=== PATIENT | female | born 1985 | race Asian ===

== ENCOUNTER 2016-11-18 20:59 | Emergency (ER) | payer OTHER ==
[~2016-11-18] VITALS: Ht 157.5 cm; Wt 58.0 kg
--- NOTE | 2016-11-18 21:58 | PHYS DOC ---
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 The pain began as a dull ache in her toes and feet grading to her ankles and now her shins knees and hips. She describes the pain is moderate not really worse when she changes position or use her muscles or legs. She also describes some mild lower back pain and possibly wonders if she has a UTI. She denies any fevers, chills, rash, recent tick bites, insect envenomations, recent URI symptoms, history of sexually transmitted diseases or joint swelling with redness and travel. She denies any recent antibiotic use denies any trauma. She denies any prior history of the same. She denies any change in vision, diarrhea, nausea, or sick contacts with similar symptoms. My differential includes but not limited to viral polyarthritis, systemic medical diseases, rheumatism, hypermobility syndrome and fibromyalgia, reactive arthritis and irritable bowel disease, polymyalgia rheumatica, crystalline arthritis, gout, infectious arthritis, osteoarthritis, paraneoplastic disease, sarcoid arthropathy, fibroblastic rheumatism, sexually-transmitted diseases. Serum sickness, influenza. Review of Systems Review of Systems Constitutional: Denies fever or chills [] Eyes: Denies change in visual acuity, redness, or eye pain [] HENT: Denies nasal congestion or sore throat [] Respiratory: Denies cough or shortness of breath [] Cardiovascular: No additional information not addressed in HPI [] GI: Denies abdominal pain, nausea, vomiting, bloody stools or diarrhea [] : Denies dysuria or hematuria [] Musculoskeletal: sHe does complain of joint pain bilateral ankles knees hips and shins without changes in color with rash or swelling. Integument: Denies rash or skin lesions [] Neurologic: Denies headache, focal weakness or sensory changes [] Endocrine: Denies polyuria or polydipsia [] Allergies Allergies Allergies Coded Allergies Type Severity Reaction Last Updated Verified No Known Drug Allergies 02/18/15 No Physical Exam Physical Exam Vital Signs within normal limits nontoxic Constitutional: Well developed, well nourished, no acute distress, non-toxic appearance. [] HENT: Normocephalic, atraumatic, bilateral external ears normal, oropharynx moist, no oral exudates, nose normal. [] Eyes: PERRLA, EOMI, conjunctiva normal, no discharge. [] Neck: Normal range of motion, no tenderness, supple, no stridor. [] Cardiovascular:Heart rate regular rhythm, no murmur [] Lungs & Thorax: Bilateral breath sounds clear to auscultation [] Abdomen: Bowel sounds normal, soft, no tenderness, no masses, no pulsatile masses. [] Skin: Warm, dry, no erythema, no rash. [] Back: No tenderness, no CVA tenderness. [] Extremities: No tenderness, no cyanosis, no clubbing, ROM intact, no edema. [] Neurologic: Alert and oriented X 3, normal motor function, normal sensory function, no focal deficits noted. [] Psychologic: Affect normal, judgement normal, mood normal. [] Current Patient Data Vital Signs Vital Signs Date Time Temp Pulse Resp B/P (MAP) Pulse Ox O2 Delivery O2 Flow Rate FiO2 11/18/16 21:00 98.6 80 16 99 Room Air Lab Results Laboratory Tests Test 11/18/16 22:54 11/18/16 23:06 White Blood Count 8.2 x10^3/uL (4.0-11.0) Red Blood Count 4.39 x10^6/uL (3.50-5.40) Hemoglobin 13.2 g/dL (12.0-15.5) Hematocrit 39.3 % (36.0-47.0) Mean Corpuscular Volume 89 fL (79-100) Mean Corpuscular Hemoglobin 30 pg (25-35) Mean Corpuscular Hemoglobin Concent 34 g/dL (31-37) Red Cell Distribution Width 14.4 % (11.5-14.5) Platelet Count 249 x10^3/uL (140-400) Neutrophils (%) (Auto) 55 % (31-73) Lymphocytes (%) (Auto) 34 % (24-48) Monocytes (%) (Auto) 9 % (0-9) Eosinophils (%) (Auto) 1 % (0-3) Basophils (%) (Auto) 1 % (0-3) Neutrophils # (Auto) 4.6 x10^3uL (1.8-7.7) Lymphocytes # (Auto) 2.8 x10^3/uL (1.0-4.8) Monocytes # (Auto) 0.7 x10^3/uL (0.0-1.1) Eosinophils # (Auto) 0.1 x10^3/uL (0.0-0.7) Basophils # (Auto) 0.0 x10^3/uL (0.0-0.2) Erythrocyte Sedimentation Rate Pending Urine Test Negative (NEG) Sodium Level 141 mmol/L (136-145) Potassium Level 3.3 mmol/L (3.5-5.1) L Chloride Level 104 mmol/L (98-107) Carbon Dioxide Level 30 mmol/L (21-32) Anion Gap 7 (6-14) Blood Urea Nitrogen 11 mg/dL (7-20) Creatinine 0.7 mg/dL (0.6-1.0) Estimated GFR (Cockcroft-Gault) 97.6 BUN/Creatinine Ratio 16 (6-20) Glucose Level 108 mg/dL (70-99) H Calcium Level 9.4 mg/dL (8.5-10.1) Total Bilirubin 0.2 mg/dL (0.2-1.0) Aspartate Amino Transferase (AST) 15 U/L (15-37) Alanine Aminotransferase (ALT) 17 U/L (14-59) Alkaline Phosphatase 136 U/L (46-116) H C-Reactive Protein 1.1 mg/L (0-3.3) Total Protein 8.4 g/dL (6.4-8.2) H Albumin 4.0 g/dL (3.4-5.0) Albumin/Globulin Ratio 0.9 (1.0-1.7) L POC Urine HCG, Qualitative hcg negative (Negative) EKG EKG [] Radiology/Procedures Radiology/Procedures [] Course & Med Decision Making Course & Med Decision Making Pertinent Labs and Imaging studies reviewed. (See chart for details) reviewed nursing notes, vital signs, reviewed She with arthralgia of unclear etiology no history of tick borne illness, or known admission by local insects. Patient with no URI symptoms, no bladder symptoms no fevers, chills or other complaints of viral syndrome. She may be in fact suffering from a viral syndrome consideredMy differential includes but not limited to viral polyarthritis, systemic medical diseases, rheumatism, hypermobility syndrome and fibromyalgia, reactive arthritis and irritable bowel disease, polymyalgia rheumatica, crystalline arthritis, gout, infectious arthritis, osteoarthritis, paraneoplastic disease, sarcoid arthropathy, fibroblastic rheumatism, sexually-transmitted diseases. Serum sickness, influenza. As possible causes of her symptoms. She has Lyme titer still pending at this time. I have provided her supportive care follow-up with her regular doctor to review these laboratories and given her precautions. Impression: Arthralgia of unclear etiology Disposition PCP follow placed on NSAIDs. [] Dragon Disclaimer Dragon Disclaimer This chart was dictated in whole or in part using Voice Recognition software in a busy, high-work load, and often noisy Emergency Department environment. It may contain unintended and wholly unrecognized errors or omissions. Departure Departure: Impression: Primary Impression: Arthralgia of both ankles Additional Impressions: Arthralgia of both feet Arthralgia of both knees Disposition: HOME, SELF-CARE Condition: IMPROVED Referrals: QUEENIE MARTELL MD (PCP) Patient Instructions: Arthralgia Additional Instructions: Please return for any new or increasing pain and new joints, rash, fever greater than 102.2 spray treatment or if you have any questions or concerns. I would advise a follow-up your primary care doctor to review laboratory work. The Lyme titer if positive we will call you at home. Scripts Naproxen Sodium (NAPROXEN SODIUM) 275 Mg Tablet 275 MG PO BID for 7 Days, #14 TAB Prov: ANJELICA RHODES MD 11/19/16 Problem Qualifiers ANJELICA RHODES MD Nov 18, 2016 21:58
[2016-11-18] MEDS ORDERED: 0.9 % SODIUM CHLORIDE 10 ML DISP.SYRIN. IV PRN (22:00)
[2016-11-18] MEDS ORDERED: IV NORMAL SALINE 1,000ML 1,000 ML IV SCH (22:00)
[2016-11-18] MEDS ORDERED: KETOROLAC 30 MG/ML VIAL. IV ONE (23:15)
[2016-11-18 23:25] LABS: BASO % 1 % (0-3); EOS # 0.1 x10^3/uL (0.0-0.7); EOS % 1 % (0-3); HEMATOCRIT 39.3 % (36.0-47.0); HEMOGLOBIN 13.2 g/dL (12.0-15.5); LYMPH # 2.8 x10^3/uL (1.0-4.8); LYMPH % 34 % (24-48); MEAN CORPUSCULAR HEMOGLOBIN 30 pg (25-35); MEAN CORPUSCULAR HGB CONC 34 g/dL (31-37); MEAN CORPUSCULAR VOLUME 89 fL (79-100); MONO # 0.7 x10^3/uL (0.0-1.1); MONO % 9 % (0-9); NEUT # 4.6 x10^3uL (1.8-7.7); NEUT % 55 % (31-73); PLATELET COUNT 249 x10^3/uL (140-400); RED BLOOD COUNT 4.39 x10^6/uL (3.50-5.40); RED CELL DISTRIBUTION WIDTH 14.4 % (11.5-14.5); WHITE BLOOD COUNT 8.2 x10^3/uL (4.0-11.0)
[2016-11-18 23:30] LABS: ALBUMIN/GLOBULIN RATIO 0.9 (1.0-1.7); C REACTIVE PROTEIN 1.1 mg/L (0-3.3); CALCIUM 9.4 mg/dL (8.5-10.1); CREATININE 0.7 mg/dL (0.6-1.0); GFR 97.6; POTASSIUM 3.3 mmol/L (3.5-5.1); TOTAL BILIRUBIN 0.2 mg/dL (0.2-1.0); TOTAL PROTEIN 8.4 g/dL (6.4-8.2)
[2016-11-19] MEDS ORDERED: NAPR275T59 PO (00:03)
[2016-11-19 00:10] VITALS: BP 118/73
[2016-11-19 00:25] LABS: SEDIMENTATION RATE 29 (0-25)
[2016-11-19 00:30] LABS: BILIRUBIN,URINE NEG (NEG); CLARITY,URINE CLEAR; COLOR,URINE YELLOW; GLUCOSE,URINE NEG (NEG)
[2016-11-19 00:31] LABS: BACTERIA,URINE FEW /HPF (0-FEW); NITRITE,URINE POS (NEG); RBC,URINE OCC /HPF (0-2); UROBILINOGEN,URINE 0.2 mg/dL (0.2 mg/dL); WBC,URINE RARE /HPF (0-4)
[2016-11-19 00:32] LABS: SQUAMOUS EPITHELIAL CELL,UR FEW /LPF
== END 2016-11-19 00:15 | disposition home or self-care (01) ==
LOC: ER 20:59
DX: M25.572 Pain in left ankle and joints of left foot (principal); M25.571 Pain in right ankle and joints of right foot; M25.562 Pain in left knee; M25.561 Pain in right knee; M54.5 Low back pain
CPT/HCPCS: 36415; 80053; 81001; 81025; 85027; 85651; 86140; 86617; 86618; 87086; 87186; 96361; 96374; 99284; J1885; J7030

== ENCOUNTER 2016-12-18 13:38 | Emergency (ER) | payer OTHER ==
[~2016-12-18] VITALS: Ht 157.5 cm; Wt 56.7 kg
[~2016-12-18 13:38] MED LIST: NAPR275T59 PO
[2016-12-18 14:40] LABS: BASO % 0 % (0-3); EOS % 1 % (0-3); HEMATOCRIT 39.1 % (36.0-47.0); HEMOGLOBIN 13.2 g/dL (12.0-15.5); LYMPH # 1.8 x10^3/uL (1.0-4.8); LYMPH % 18 % (24-48); MEAN CORPUSCULAR HEMOGLOBIN 30 pg (25-35); MEAN CORPUSCULAR HGB CONC 34 g/dL (31-37); MEAN CORPUSCULAR VOLUME 89 fL (79-100); MONO # 0.7 x10^3/uL (0.0-1.1); MONO % 7 % (0-9); NEUT # 7.2 x10^3uL (1.8-7.7); NEUT % 74 % (31-73); PLATELET COUNT 267 x10^3/uL (140-400); RED BLOOD COUNT 4.41 x10^6/uL (3.50-5.40); RED CELL DISTRIBUTION WIDTH 14.2 % (11.5-14.5); WHITE BLOOD COUNT 9.8 x10^3/uL (4.0-11.0)
[2016-12-18 14:46] LABS: CALCIUM 9.3 mg/dL (8.5-10.1); CREATININE 0.8 mg/dL (0.6-1.0); GFR 83.7; POTASSIUM 3.8 mmol/L (3.5-5.1)
[2016-12-18 14:49] LABS: BACTERIA,URINE FEW /HPF (0-FEW); BILIRUBIN,URINE NEG (NEG); CLARITY,URINE CLEAR; COLOR,URINE YELLOW; GLUCOSE,URINE NEG (NEG); NITRITE,URINE NEG (NEG); SQUAMOUS EPITHELIAL CELL,UR FEW /LPF; UROBILINOGEN,URINE 0.2 mg/dL (0.2 mg/dL)
--- NOTE | 2016-12-18 15:01 | PHYS DOC ---
General Chief Complaint: FACE PROBLEM Stated Complaint: PAIN ON LEFT SIDE OF BODY/FACIAL SWELLING Time Seen by MD: 13:40 Source: patient, old records Exam Limitations: no limitations Problems: History of Present Illness Initial Comments Patient is a 31-year-old female who normally follows at [facility] coming to the emergency department with complaint of left jaw discomfort and left arm and leg muscle soreness. Patient states that she recently finished a course of ciprofloxacin followed by Augmentin to treat a urinary tract infection. She was seen here in October for arthralgias and labs including Lyme titer were unremarkable she did have a urinary tract infection at that time. She says she was feeling well after 5 days of Augmentin and has felt well since until this past few days. She has known impacted wisdom teeth bilaterally lower jaw, she's had increased discomfort and she perceives left sided jaw swelling for several days now. She saw a dentist earlier today who put her on the books for wisdom teeth extraction January 09. Dentist did not feel that antibiotics were indicated at this time. The patient does have tender mildly enlarged reactive lymphadenopathy bilaterally at the anterior cervical chain. She denies dysphasia or dyspnea dyspnea on exertion or sore throat. No headache neck stiffness or rash or fever. Patient also has a special needs child who she says requires an RN to care for them. She has to pick the growing child up frequently and uses her left arm. She complains of left arm and leg muscle discomfort and denies any other trauma or strenuous/repetitive activities. No fever or nausea vomiting headache and no recent tick bites. She expresses a great deal of anxiety as she has not unable to find out the results of her labs from her last visit here last month. Her fears Worker's Compensation greatly after I discussed the normal value findings. ED vital signs within normal limits Timing/Duration: 1 week Severity: mild Modifying Factors: worse with movement, improves with rest Associated Symptoms: other Allergies: Coded Allergies: No Known Drug Allergies (Unverified , 12/18/16) Past Medical History Medical History: no pertinent history Surgical History: no surgical history Social History Smoker: cigarettes Alcohol: none Drugs: none Review of Systems Constitutional: denies chills, denies diaphoresis, denies fever, denies malaise , denies weakness EENTM: see HPI, denies eye pain, denies blurred vision, denies ear pain, denies ear discharge, denies nose pain, denies nose congestion, denies throat pain, denies throat swelling Respiratory: denies cough, denies orthopnea, denies shortness of breath, denies stridor, denies wheezing Cardiovascular: denies chest pain, denies palpitations, denies syncope Gastrointestinal: denies abdominal pain, denies diarrhea, denies nausea, denies vomiting Genitourinary: denies frequency, denies hematuria, denies pain Musculoskeletal: denies back pain, denies joint swelling, muscle pain, muscle stiffness, denies neck pain Psychiatric/Neurological: see HPI, denies headache, denies pre-existing deficit , denies weakness Physical Exam General Appearance: WD/WN, no apparent distress Eyes: bilateral eye normal inspection, bilateral eye PERRL, bilateral eye EOMI Ear, Nose, Throat: hearing grossly normal, normal ENT inspection, normal pharynx (bilateral lower wisdom teeth are impacted there is very slight gingival swelling primarily on the left side. There is no tongue pharynx lip or cheek swelling the airway is patent. There is no bony tenderness or purulence.) Neck: full range of motion, supple (tender reactive anterior cervical lymphadenopathy bilaterally) Respiratory: normal breath sounds, no respiratory distress Cardiovascular: normal peripheral pulses, regular rate, rhythm Gastrointestinal: non tender, soft Extremities: normal range of motion, no pedal edema, no calf tenderness, pelvis stable, other (very mild muscle tenderness at the left upper and lower extremities strength is symmetric and preserved no evidence of trauma no swelling or bruising.) Neurologic/Psychiatric: certified recreational therapist II-XII nml as tested, no motor/sensory deficits, alert, oriented x 3, other (patient appears very anxious she denies suicidal or homicidal ideation) Skin: normal color, warm/dry Orders, Labs, Meds Lab and urine studies unremarkable. 31-year-old female who comes to the emergency department complaining of dental pain and delayed onset muscle soreness. Antibiotics not indicated at this point she is scheduled for tooth extraction January 09 and was encouraged to follow up. I discussed carrying her child with her right arm to let the left side of her body have her rest for a few days and see if her symptoms resolved. I discussed close PCP follow-up in 1-2 days and she was advised to stop smoking. She expressed agreement and understanding of treatment plan. Departure Time of Disposition: 14:59 Disposition: 01 HOME, SELF-CARE Diagnosis: impacted wisdom teeth, myalgia Condition: GOOD Patient Instructions: Dental Pain, [id number], Myalgia, Adult Additional Instructions: Rest, no strenuous activity. Try carrying your children with your right arm until follow-up with your doctor. Aggressive hydration with Gatorade or water. [id number] Tylenol and/or ibuprofen as needed. Follow-up for wisdom teeth extraction January 09 as scheduled. Follow-up at [facility] in 1-2 days for recheck. Return to the ED with new or changing symptoms. ARDEN JUAREZ DO Dec 18, 2016 15:01
[2016-12-18 15:20] VITALS: BP 122/78
== END 2016-12-18 15:21 | disposition home or self-care (01) ==
LOC: ER 13:38
DX: K01.1 Impacted teeth (principal); M79.1 Myalgia; F17.210 Nicotine dependence, cigarettes, uncomplicated
CPT/HCPCS: 36415; 80048; 81001; 85027; 99284

== ENCOUNTER 2017-10-04 21:48 | Emergency (ER) | payer OTHER ==
[~2017-10-04] VITALS: Ht 157.5 cm; Wt 54.0 kg
[2017-10-04] MEDS ORDERED: ASPIRIN 81 MG TAB.CHEW PO ONE (23:00)
[2017-10-04 23:05] LABS: BASO % 0 % (0-3); EOS # 0.1 x10^3/uL (0.0-0.7); EOS % 1 % (0-3); HEMATOCRIT 36.6 % (36.0-47.0); HEMOGLOBIN 12.4 g/dL (12.0-15.5); LYMPH # 1.7 x10^3/uL (1.0-4.8); LYMPH % 25 % (24-48); MEAN CORPUSCULAR HEMOGLOBIN 30 pg (25-35); MEAN CORPUSCULAR HGB CONC 34 g/dL (31-37); MEAN CORPUSCULAR VOLUME 88 fL (79-100); MONO # 0.6 x10^3/uL (0.0-1.1); MONO % 9 % (0-9); NEUT # 4.2 x10^3uL (1.8-7.7); NEUT % 64 % (31-73); PLATELET COUNT 257 x10^3/uL (140-400); RED BLOOD COUNT 4.17 x10^6/uL (3.50-5.40); WHITE BLOOD COUNT 6.6 x10^3/uL (4.0-11.0)
[2017-10-04 23:11] LABS: ALBUMIN 3.8 g/dL (3.4-5.0); ALBUMIN/GLOBULIN RATIO 0.9 (1.0-1.7); CALCIUM 9.1 mg/dL (8.5-10.1); CREATININE 0.9 mg/dL (0.6-1.0); GFR 72.6; POTASSIUM 3.5 mmol/L (3.5-5.1); TOTAL BILIRUBIN 0.4 mg/dL (0.2-1.0); TOTAL PROTEIN 7.9 g/dL (6.4-8.2)
--- NOTE | 2017-10-05 01:23 | PHYS DOC ---
Past History Past Medical History: Other Past Surgical History: Other Smoking: Non-smoker Alcohol Use: None Drug Use: None Adult General Chief Complaint Chief Complaint: CHEST PAIN [facility] HPI 32-year-old female complaining of pleuritic chest pain. No exertional chest pain. No nausea vomiting diaphoresis. Patient has no productive cough or fever. Pain is not reproducible with movement Review of Systems Review of Systems Constitutional: Denies fever or chills [] Eyes: Denies change in visual acuity, redness, or eye pain [] HENT: Denies nasal congestion or sore throat [] Respiratory: Denies cough or shortness of breath [] Cardiovascular: No additional information not addressed in HPI [] GI: Denies abdominal pain, nausea, vomiting, bloody stools or diarrhea [] : Denies dysuria or hematuria [] Musculoskeletal: Denies back pain or joint pain [] Integument: Denies rash or skin lesions [] Neurologic: Denies headache, focal weakness or sensory changes [] Endocrine: Denies polyuria or polydipsia [] All other systems were reviewed and found to be within normal limits, except as documented in this note. Current Medications Current Medications Current Medications Medications (Trade) Dose Ordered Sig/Yady Start Time Stop Time Status Last Admin Dose Admin Aspirin (Children'S Aspirin) 324 mg 1X ONCE 10/04/17 23:00 10/04/17 23:01 DC 10/04/17 23:23 324 MG Allergies Allergies Allergies Coded Allergies Type Severity Reaction Last Updated Verified No Known Drug Allergies 12/18/16 No Physical Exam Physical Exam Constitutional: Well developed, well nourished, no acute distress, non-toxic appearance. [] HENT: Normocephalic, atraumatic, bilateral external ears normal, oropharynx moist, no oral exudates, nose normal. [] Eyes: PERRLA, EOMI, conjunctiva normal, no discharge. [] Neck: Normal range of motion, no tenderness, supple, no stridor. [] Cardiovascular:Heart rate regular rhythm, no murmur [] Lungs & Thorax: Bilateral breath sounds clear to auscultation [] Abdomen: Bowel sounds normal, soft, no tenderness, no masses, no pulsatile masses. [] Skin: Warm, dry, no erythema, no rash. [] Back: No tenderness, no CVA tenderness. [] Extremities: No tenderness, no cyanosis, no clubbing, ROM intact, no edema. [] Neurologic: Alert and oriented X 3, normal motor function, normal sensory function, no focal deficits noted. [] Psychologic: Affect normal, judgement normal, mood normal. [] Current Patient Data Vital Signs Vital Signs Date Time Temp Pulse Resp B/P (MAP) Pulse Ox O2 Delivery O2 Flow Rate FiO2 10/04/17 21:48 98.3 73 20 100 Room Air Lab Results Laboratory Tests Test 10/04/17 21:38 10/04/17 22:30 POC Urine HCG, Qualitative hcg negative (Negative) White Blood Count 6.6 x10^3/uL (4.0-11.0) Red Blood Count 4.17 x10^6/uL (3.50-5.40) Hemoglobin 12.4 g/dL (12.0-15.5) Hematocrit 36.6 % (36.0-47.0) Mean Corpuscular Volume 88 fL (79-100) Mean Corpuscular Hemoglobin 30 pg (25-35) Mean Corpuscular Hemoglobin Concent 34 g/dL (31-37) Red Cell Distribution Width 16.0 % (11.5-14.5) H Platelet Count 257 x10^3/uL (140-400) Neutrophils (%) (Auto) 64 % (31-73) Lymphocytes (%) (Auto) 25 % (24-48) Monocytes (%) (Auto) 9 % (0-9) Eosinophils (%) (Auto) 1 % (0-3) Basophils (%) (Auto) 0 % (0-3) Neutrophils # (Auto) 4.2 x10^3uL (1.8-7.7) Lymphocytes # (Auto) 1.7 x10^3/uL (1.0-4.8) Monocytes # (Auto) 0.6 x10^3/uL (0.0-1.1) Eosinophils # (Auto) 0.1 x10^3/uL (0.0-0.7) Basophils # (Auto) 0.0 x10^3/uL (0.0-0.2) D-Dimer (Caitlin) < 0.19 mg/L (0.00-0.50) Sodium Level 140 mmol/L (136-145) Potassium Level 3.5 mmol/L (3.5-5.1) Chloride Level 103 mmol/L (98-107) Carbon Dioxide Level 28 mmol/L (21-32) Anion Gap 9 (6-14) Blood Urea Nitrogen 15 mg/dL (7-20) Creatinine 0.9 mg/dL (0.6-1.0) Estimated GFR (Cockcroft-Gault) 72.6 BUN/Creatinine Ratio 17 (6-20) Glucose Level 99 mg/dL (70-99) Calcium Level 9.1 mg/dL (8.5-10.1) Total Bilirubin 0.4 mg/dL (0.2-1.0) Aspartate Amino Transferase (AST) 17 U/L (15-37) Alanine Aminotransferase (ALT) 21 U/L (14-59) Alkaline Phosphatase 101 U/L (46-116) Troponin I Quantitative < 0.017 ng/mL (0-0.055) Total Protein 7.9 g/dL (6.4-8.2) Albumin 3.8 g/dL (3.4-5.0) Albumin/Globulin Ratio 0.9 (1.0-1.7) L EKG EKG EKG with normal sinus rhythm normal axis no STEMI interpreted by me[] Radiology/Procedures Radiology/Procedures Chest x-ray with chronic changes no acute disease interpreted by me[] Course & Med Decision Making Course & Med Decision Making Pertinent Labs and Imaging studies reviewed. (See chart for details) Signs and symptoms consistent with pleurisy. Workup unremarkable. Patient stable and well-appearing. No further workup or treatment indicated. Patient agrees with outpatient follow-up and strict return precautions given [] Dragon Disclaimer Dragon Disclaimer This electronic medical record was generated, in whole or in part, using a voice recognition dictation system. Departure Departure: Impression: Primary Impression: Pleurisy Disposition: 01 HOME, SELF-CARE Condition: GOOD Referrals: PCP,UNKNOWN (PCP) Patient Instructions: Pleurisy Additional Instructions: You've been experiencing pleurisy. Pleurisy first to chest pain as a result of irritation of the lung lining called the pleura. It is typically sharp and stabbing in nature and it is common that this discomfort is worse with a breath or cough. You have no signs of pneumonia or pulmonary infection. There is no clinical or laboratory evidence that you have a blood clot in your lung, another cause of pleurisy. There is no evidence that the source of your pain is from your heart tonight. Take ibuprofen 600 mg every 6 hours and follow-up with your doctor tomorrow, for reevaluation and further workup and treatment as needed. Return immediately for new severe or worsening symptoms LUISA FRANCISCO MD October 05, 2017 01:23
[2017-10-05 01:35] VITALS: BP 111/71
--- NOTE | 2017-10-05 03:47 | EKG ---
[address] [address] Test Date: 2017-10-04 Test Time: 22:17:37 Pat Name: JN PAUL Department: Room: Gender: F Heel Reducer: SAMIA : 1985 Requested By: LUISA FRANCISCO Order Number: [id number] Reading MD: Measurements Intervals Mayer Rate: 65 P: 0 AK: 116 QRS: 42 QRSD: 84 T: 21 QT: 378 QTc: 394 Interpretive Statements SINUS RHYTHM QRS(T) CONTOUR ABNORMALITY CONSIDER ANTEROSEPTAL MYOCARDIAL DAMAGE POSSIBLY ABNORMAL ECG RI6.01 No previous ECG available for comparison
--- NOTE | 2017-10-05 08:33 | RAD ---
Single view of the chest. 10/04/2017 10:53 PM Indication: CHEST PAIN Comparison: None available Findings: There is no focal consolidation. There is no pleural effusion or pneumothorax. The cardiomediastinal silhouette and pulmonary vasculature are within normal limits. Surgical clips noted projecting over the central and right neck. No acute osseous abnormalities are seen. Impression: No evidence of acute cardiopulmonary process. Electronically signed by: Osiel Gibson MD (10/05/2017 8:29 AM) [id number]
== END 2017-10-05 01:35 | disposition home or self-care (01) ==
LOC: ER 21:48
DX: R09.1 Pleurisy (principal)
CPT/HCPCS: 36415; 71045; 80053; 81025; 84484; 85025; 85379; 93005; 99285-25

== ENCOUNTER 2017-10-08 10:15 | Emergency (ER) | payer OTHER ==
[~2017-10-08] VITALS: Ht 157.5 cm; Wt 58.0 kg
--- NOTE | 2017-10-08 12:27 | PHYS DOC ---
Past History Past Medical History: Anxiety, Cancer, Hypothyroid, Other Past Surgical History: Cancer Surgery, Other Smoking: Non-smoker Alcohol Use: None Drug Use: None Adult General Chief Complaint Chief Complaint: ANXIETY/PANIC ATTACK HPI HPI 32-year-old female presents with anxiety and panic attacks. The patient has been having increased anxiety for the last couple of weeks. There is no particular inciting event that brought this on. She began having strange dreams and has been getting less sleep. She certainly could be related to her thyroid disorder. She had her thyroid removed for cancer. They checked her TSH was 14. They have increased her Synthroid that is only been for just over a week. The patient has been having fevers about hurting her children. Though these thoughts in her mind, she has absolutely no intention of hurting them. This is just a fear that what would happen if she did hurt them. This is made her severely anxious and she is around her 3 children. Her PCP recently prescribed Klonopin 0.5 mg twice a day. The patient has only taken 2 doses viscus does not like taking medications. Patient denies any other symptoms of physical illness. Review of Systems Review of Systems Constitutional: Denies fever or chills [] Eyes: Denies change in visual acuity, redness, or eye pain [] HENT: Denies nasal congestion or sore throat [] Respiratory: Denies cough or shortness of breath [] Cardiovascular: No additional information not addressed in HPI [] GI: Denies abdominal pain, nausea, vomiting, bloody stools or diarrhea [] : Denies dysuria or hematuria [] Musculoskeletal: Denies back pain or joint pain [] Integument: Denies rash or skin lesions [] Neurologic: Denies headache, focal weakness or sensory changes [] Endocrine: Denies polyuria or polydipsia [] All other systems were reviewed and found to be within normal limits, except as documented in this note. Allergies Allergies Allergies Coded Allergies Type Severity Reaction Last Updated Verified ibuprofen Allergy Unknown Rash 10/08/17 Yes Physical Exam Physical Exam Constitutional: Well developed, well nourished, no acute distress, non-toxic appearance. [] HENT: Normocephalic, atraumatic, bilateral external ears normal, oropharynx moist, no oral exudates, nose normal. [] Eyes: PERRLA, EOMI, conjunctiva normal, no discharge. [] Neck: Normal range of motion, no tenderness, supple, no stridor. [] Cardiovascular:Heart rate regular rhythm, no murmur [] Lungs & Thorax: Bilateral breath sounds clear to auscultation [] Abdomen: Bowel sounds normal, soft, no tenderness, no masses, no pulsatile masses. [] Skin: Warm, dry, no erythema, no rash. [] Back: No tenderness, no CVA tenderness. [] Extremities: No tenderness, no cyanosis, no clubbing, ROM intact, no edema. [] Neurologic: Alert and oriented X 3, normal motor function, normal sensory function, no focal deficits noted. [] Psychologic: Tearful affect, anxious, good insight, answers questions appropriately. [] Current Patient Data Vital Signs Vital Signs Date Time Temp Pulse Resp B/P (MAP) Pulse Ox O2 Delivery O2 Flow Rate FiO2 10/08/17 10:30 98.3 106 20 97 Room Air EKG EKG [] Radiology/Procedures Radiology/Procedures [] Course & Med Decision Making Course & Med Decision Making Pertinent Labs and Imaging studies reviewed. (See chart for details) I believe the patient has suffering from anxiety likely exacerbated by her thyroid condition. Do not believe that she is danger to herself or her children. She is expresses no intent of harming anyone. She is just fearful of what would happen if she did. He understands that this is not rational thinking. I have advised that she increase her Klonopin to a 0.5 mg twice a day and to get an immediate referral from the base physician for psychiatry and a counselor. [] Dragon Disclaimer Dragon Disclaimer This electronic medical record was generated, in whole or in part, using a voice recognition dictation system. Departure Departure: Referrals: CHIP BEAR DO, MPH (PCP) JOSEPH WALLER DO October 08, 2017 12:27
[2017-10-08 12:31] VITALS: BP 117/79
== END 2017-10-08 12:44 | disposition home or self-care (01) ==
LOC: ER 10:15
DX: F41.0 Panic disorder [episodic paroxysmal anxiety] (principal); E03.9 Hypothyroidism, unspecified; Z88.6 Allergy status to analgesic agent
CPT/HCPCS: 99284

== ENCOUNTER 2019-03-31 17:25 | Emergency (ER) | payer OTHER ==
[~2019-03-31] VITALS: Ht 157.5 cm; Wt 58.0 kg
[2019-03-31] MEDS ORDERED: IV NORMAL SALINE 1,000ML 1,000 ML IV ONE (18:00)
[2019-03-31 18:10] LABS: BASO # 0.1 x10^3/uL (0.0-0.2); BASO % 1 % (0-3); EOS % 0 % (0-3); HEMATOCRIT 41.7 % (36.0-47.0); HEMOGLOBIN 13.9 g/dL (12.0-15.5); LYMPH # 1.6 x10^3/uL (1.0-4.8); LYMPH % 15 % (24-48); MEAN CORPUSCULAR HEMOGLOBIN 31 pg (25-35); MEAN CORPUSCULAR HGB CONC 33 g/dL (31-37); MEAN CORPUSCULAR VOLUME 94 fL (79-100); MONO # 0.8 x10^3/uL (0.0-1.1); MONO % 7 % (0-9); NEUT # 8.6 x10^3uL (1.8-7.7); NEUT % 78 % (31-73); PLATELET COUNT 291 x10^3/uL (140-400); RED BLOOD COUNT 4.45 x10^6/uL (3.50-5.40); RED CELL DISTRIBUTION WIDTH 13.6 % (11.5-14.5); WHITE BLOOD COUNT 11.1 x10^3/uL (4.0-11.0)
[2019-03-31] MEDS ORDERED: ONDANSETRON PF 4 MG/2 ML VIAL. IVP ONE (18:15)
[2019-03-31 18:20] LABS: ALBUMIN 3.7 g/dL (3.4-5.0); ALBUMIN/GLOBULIN RATIO 0.8 (1.0-1.7); CALCIUM 9.2 mg/dL (8.5-10.1); CREATININE 0.7 mg/dL (0.6-1.0); GFR 95.8; POTASSIUM 3.6 mmol/L (3.5-5.1); TOTAL BILIRUBIN 0.5 mg/dL (0.2-1.0); TOTAL PROTEIN 8.1 g/dL (6.4-8.2)
--- NOTE | 2019-03-31 18:38 | PHYS DOC ---
Past History Past Medical History: Anxiety, Cancer, Hypothyroid, Other Past Surgical History: Cancer Surgery (thyroidectomy), Other Smoking: Non-smoker Alcohol Use: None Drug Use: None Adult General Chief Complaint Chief Complaint: NAUSEA/VOMITING/DIARRHEA HPI HPI Ms. Rosenbaum is a 34 yo -Indian Female w/ PMH significant for hyperemesis gravidarum, 2 miscarriages, and thyroidectomy presents 8-weeks w/ 2 weeks of nausea and non-bloody vomiting that occurs throughout the day. She began to experience muscle aches today, which prompted her to seek medical attention. She has not urinated since doing so once yesterday as she has been unable to keep fluids or food down today. She was last able to keep several sips of water down yesterday and the small amount required to take her daily thyroid medication. She was last able to hold down a small amount of "sliced potatoes" on Sunday but has not eaten since. She has 3 living children; 14yo male, 7yo male, and 3yo female. Patient admits to experiencing severe nausea and vomiting throughout her last that required several admissions for dehydration and was refractory to Zofran and Phenergan suppository. States she is not currently able to keep down her vitamins. Denies sick contacts, sore throat, headache, blurry vision, abdominal pain, dysuria, hematuria, constipation, diarrhea, CP, or SOA. Review of Systems Review of Systems Constitutional: Denies fever or chills Eyes: Denies redness or eye pain HENT: Denies nasal congestion or sore throat Respiratory: Denies cough or shortness of breath Cardiovascular: Denies chest pain or palpitations GI: Reports nausea and vomiting. Denies abdominal pain. : Reports oliguria. Denies dysuria or hematuria. Musculoskeletal: Denies back pain or joint pain Integument: Denies rash or skin lesions Neurologic: Denies headache, focal weakness or sensory changes Complete systems were reviewed and found to be within normal limits, except as documented in this note. Current Medications Current Medications Current Medications Medications (Trade) Dose Ordered Sig/Yady Start Time Stop Time Status Last Admin Dose Admin Ondansetron HCl (Zofran) 4 mg 1X ONCE 03/31/19 18:15 03/31/19 18:16 DC 03/31/19 18:14 4 MG Sodium Chloride 1,000 ml @ 1,000 mls/hr 1X ONCE 03/31/19 18:00 03/31/19 18:59 03/31/19 18:00 1,000 MLS/HR Allergies Allergies Allergies Coded Allergies Type Severity Reaction Last Updated Verified ibuprofen Allergy Unknown Rash 10/08/17 Yes Physical Exam Physical Exam Constitutional: Well developed, well nourished, no acute distress, fatigued HENT: Normocephalic, atraumatic, oropharynx dry Eyes: PERRL, EOMI, conjunctiva normal, no discharge Neck: Normal range of motion, no tenderness, supple Cardiovascular: Heart rate normal, regular rhythm w/o gallops, rubs, or murmurs Lungs & Thorax: Bilateral breath sounds clear to auscultation, no wheezing Abdomen: Soft, no tenderness, non-distended Skin: Warm, dry, no erythema, no rash Back: No tenderness, no CVA tenderness Extremities: No tenderness, ROM intact, no edema Neurologic: Alert and oriented X 3, normal motor function, normal sensory function, no focal deficits noted Psychologic: Affect normal, judgement normal, mood normal Current Patient Data Vital Signs Vital Signs Date Time Temp Pulse Resp B/P (MAP) Pulse Ox O2 Delivery O2 Flow Rate FiO2 03/31/19 17:38 98.4 102 16 97 Room Air Lab Results Laboratory Tests Test 03/31/19 17:44 White Blood Count 11.1 x10^3/uL (4.0-11.0) H Red Blood Count 4.45 x10^6/uL (3.50-5.40) Hemoglobin 13.9 g/dL (12.0-15.5) Hematocrit 41.7 % (36.0-47.0) Mean Corpuscular Volume 94 fL (79-100) Mean Corpuscular Hemoglobin 31 pg (25-35) Mean Corpuscular Hemoglobin Concent 33 g/dL (31-37) Red Cell Distribution Width 13.6 % (11.5-14.5) Platelet Count 291 x10^3/uL (140-400) Neutrophils (%) (Auto) 78 % (31-73) H Lymphocytes (%) (Auto) 15 % (24-48) L Monocytes (%) (Auto) 7 % (0-9) Eosinophils (%) (Auto) 0 % (0-3) Basophils (%) (Auto) 1 % (0-3) Neutrophils # (Auto) 8.6 x10^3uL (1.8-7.7) H Lymphocytes # (Auto) 1.6 x10^3/uL (1.0-4.8) Monocytes # (Auto) 0.8 x10^3/uL (0.0-1.1) Eosinophils # (Auto) 0.0 x10^3/uL (0.0-0.7) Basophils # (Auto) 0.1 x10^3/uL (0.0-0.2) Sodium Level 139 mmol/L (136-145) Potassium Level 3.6 mmol/L (3.5-5.1) Chloride Level 103 mmol/L (98-107) Carbon Dioxide Level 23 mmol/L (21-32) Anion Gap 13 (6-14) Blood Urea Nitrogen 11 mg/dL (7-20) Creatinine 0.7 mg/dL (0.6-1.0) Estimated GFR (Cockcroft-Gault) 95.8 BUN/Creatinine Ratio 16 (6-20) Glucose Level 129 mg/dL (70-99) H Calcium Level 9.2 mg/dL (8.5-10.1) Total Bilirubin 0.5 mg/dL (0.2-1.0) Aspartate Amino Transferase (AST) 16 U/L (15-37) Alanine Aminotransferase (ALT) 18 U/L (14-59) Alkaline Phosphatase 93 U/L (46-116) Total Protein 8.1 g/dL (6.4-8.2) Albumin 3.7 g/dL (3.4-5.0) Albumin/Globulin Ratio 0.8 (1.0-1.7) L EKG EKG [] Radiology/Procedures Radiology/Procedures [] Course & Med Decision Making Course & Med Decision Making Pertinent Lab studies reviewed. (See chart for details) Ms. Rosenbaum is 8 weeks and presents w/ 2 weeks nausea and vomiting. 1L NS, 1L D5W, Zofran, diphenhydramine, metoclopramide, and famotidine were administered. UA positive nitrates w/ many bacteria. WBC 11.1. Ceftriaxone IV was administered. Patient stable for discharge with outpatient follow-up with PCP and OBGYN. Discussed findings and plan with patient, who acknowledges understanding and agreement. Mairaelena Disclaimer Dragon Disclaimer This electronic medical record was generated, in whole or in part, using a voice recognition dictation system. Departure Departure: Impression: Primary Impression: Hyperemesis gravidarum Additional Impressions: Dehydration during UTI (urinary tract infection) Disposition: 01 HOME, SELF-CARE Condition: STABLE Referrals: CHIP BEAR DO, [facility] (PCP) Patient Instructions: ABCs of , Diet - Hyperemesis Gravidarum, Hyperemesis Gravidarum, Urinary Tract Infection, [id number] Scripts Prochlorperazine Maleate (PROCHLORPERAZINE MALEATE) 25 Mg Supp.rect 25 MG RC TID PRN PRN for NAUSEA, #14 SUPP.RECT Prov: LUISA PATTERSON DO 03/31/19 Ondansetron (ONDANSETRON ODT) 4 Mg Tab.rapdis 1 TAB PO PRN Q6-8HRS PRN for NAUSEA, #16 TAB Prov: LUISA PATTERSON DO 03/31/19 Cephalexin (KEFLEX) 500 Mg Capsule 1 CAP PO TID for UTI for 7 Days, #21 CAP 0 Refills Prov: LUISA PATTERSON DO 03/31/19 Problem Qualifiers Additional Impressions: UTI (urinary tract infection) Urinary tract infection type: acute cystitis Hematuria presence: without hematuria Qualified Codes: N30.00 - Acute cystitis without hematuria LUISA PATTERSON DO Mar 31, 2019 18:38
[2019-03-31] MEDS ORDERED: diphenhydrAMINE 50 MG/ML VIAL IVP ONE (19:00)
[2019-03-31] MEDS ORDERED: METOCLOPRAMIDE HCL 10 MG/2 ML VIAL. IVP ONE (19:00)
[2019-03-31] MEDS ORDERED: IV DEXTROSE 5% - 0.9 % NACL 500 ML IV ONE (19:00)
[2019-03-31] MEDS ORDERED: FAMOTIDINE 20 MG/2 ML VIAL IVP ONE (19:00)
[2019-03-31 19:36] LABS: BILIRUBIN,URINE NEG (NEG); CLARITY,URINE HAZY; COLOR,URINE STRAW; GLUCOSE,URINE NEG (NEG); NITRITE,URINE POS (NEG); UROBILINOGEN,URINE 1 mg/dL (0.2 mg/dL)
[2019-03-31 19:37] LABS: BACTERIA,URINE MANY /HPF (0-FEW); SQUAMOUS EPITHELIAL CELL,UR OCC /LPF; WBC,URINE OCC /HPF (0-4)
[2019-03-31] MEDS ORDERED: IV NORMAL SALINE 50ML 50 ML ONE (20:03)
[2019-03-31] MEDS ORDERED: cefTRIAXone SODIUM 1 GM VIAL ONE (20:03)
[2019-03-31] MEDS ORDERED: ONDA4TAB12 PO (20:13)
[2019-03-31] MEDS ORDERED: PROC25SU23 RC (20:13)
[2019-03-31] MEDS ORDERED: CEPH-264 PO (20:13)
[2019-03-31 20:24] VITALS: BP 101/52
== END 2019-03-31 20:29 | disposition home or self-care (01) ==
LOC: ER 17:25
DX: O21.1 Hyperemesis gravidarum with metabolic disturbance (principal); O23.41 Unspecified infection of urinary tract in pregnancy, first trimester; E03.9 Hypothyroidism, unspecified; Z3A.08 8 weeks gestation of pregnancy; Z88.6 Allergy status to analgesic agent
CPT/HCPCS: 36415; 80053; 81001; 83735; 85025; 87086; 96361; 96365; 96375; 99285; J0696; J1200; J2405; J2765; J3490; J7042; 99284-25; J7030

== ENCOUNTER 2019-06-06 12:28 | Emergency (ER) | payer OTHER ==
[~2019-06-06] VITALS: Ht 157.5 cm; Wt 58.0 kg
[~2019-06-06 12:28] MED LIST changes: +CEPH-264 PO; +ONDA4TAB12 PO; +PROC25SU23 RC
--- NOTE | 2019-06-06 13:03 | PHYS DOC ---
Past History Past Medical History: Anxiety, Cancer, Hypothyroid, Other Past Surgical History: Cancer Surgery, Other Smoking: Non-smoker Alcohol Use: None Drug Use: None Adult General Chief Complaint Chief Complaint: MULTIPLE COMPLAINTS [facility] 34 -year-old female presents with upper back pain, shortness of breath, and fatigue. The patient is about 17 weeks . This is her fifth . The patient was feeling good yesterday. After she woke up today, she is felt short of breath and very fatigued with minimal exertion. She has had some pain in her upper back on the left side that radiates down to her legs. She's never had this before. She has no previous injuries to this area. She denies trauma or falls. Patient had hyperemesis until around Live. She still has a PICC line and gives herself potassium infusions. She has been able to eat solid food since. He drinking well yesterday. The patient is also hypothyroid after having thyroid cancer. She takes Synthroid and T3 as prescribed. Last fall 6 weeks ago. Patient denies chest pain, fever, chills, diarrhea or vomiting. Review of Systems Review of Systems Constitutional: Fatigue. Denies fever or chills [] Eyes: Denies change in visual acuity, redness, or eye pain [] HENT: Denies nasal congestion or sore throat [] Respiratory: shortness of breath [] Cardiovascular: No additional information not addressed in HPI [] GI: Denies abdominal pain, nausea, vomiting, bloody stools or diarrhea [] : Denies dysuria or hematuria [] Musculoskeletal: Left-sided upper back pain[] Integument: Denies rash or skin lesions [] Neurologic: Denies headache, focal weakness or sensory changes [] Endocrine: Denies polyuria or polydipsia [] All other systems were reviewed and found to be within normal limits, except as documented in this note. Allergies Allergies Allergies Coded Allergies Type Severity Reaction Last Updated Verified ibuprofen Allergy Unknown Rash 10/08/17 Yes Physical Exam Physical Exam Constitutional: Well developed, well nourished, no acute distress, non-toxic appearance. [] HENT: Normocephalic, atraumatic, bilateral external ears normal, oropharynx moist, no oral exudates, nose normal. [] Eyes: PERRLA, EOMI, conjunctiva normal, no discharge. [] Neck: Normal range of motion, no tenderness, supple, no stridor. [] Cardiovascular:Heart rate regular rhythm, no murmur [] Lungs & Thorax: Bilateral breath sounds clear to auscultation [] Abdomen: Bowel sounds normal, soft, no tenderness, gravid uterus, no masses, no pulsatile masses. [] Skin: Warm, dry, no erythema, no rash. PICC line in right arm[] Back: No tenderness, no CVA tenderness. [] Extremities: No tenderness, no cyanosis, no clubbing, ROM intact, no edema. [] Neurologic: Alert and oriented X 3, normal motor function, normal sensory function, no focal deficits noted. [] Psychologic: Affect normal, judgement normal, mood normal. [] EKG EKG Sinus rhythm, rate 90, normal axis, no ST elevations or depressions.[] Radiology/Procedures Radiology/Procedures [] Impressions: CHEST PA LATERAL History: Shortness of breath Comparison: October 04, 2017 Findings: 2 views of the chest are submitted. There is some motion degradation. There is no new lobar consolidation, pleural fluid, or pneumothorax. There are again clips near the right apex. There is now a right upper extremity PICC with the tip near the cavoatrial junction. Cardiac silhouette is stable, within normal limits. Impression: 1. No acute radiographic abnormality is identified. Electronically signed by: Adithya Avendano MD (06/06/2019 1:22 PM) [id number] DICTATED AND SIGNED BY: ADITHYA AVENDANO MD DATE: 06/06/19 1322 CC: JOSEPH WALLER DO; PCP,UNKNOWN ~ Course & Med Decision Making Course & Med Decision Making Pertinent Labs and Imaging studies reviewed. (See chart for details) The patient's labs are unremarkable except for low albumin of 2.8. Her electr olytes are within normal limits. Her chest x-ray is negative for acute findings. Her EKG is unremarkable. The patient's workup does not reveal any concerning signs for her shortness of breath or back pain. The back pain, musculoskeletal. I'm not exactly sure what is causing the patient to feel more weak. This could be fatigue of . I cannot order a TSH as we do not run those at this facility. I have advised that she follow up with her primary care physician for further evaluation if her symptoms do not improve. If her condition worsens she'll return to the emergency room. She is stable for discharge at this time. [] Dragon Disclaimer Dragon Disclaimer This electronic medical record was generated, in whole or in part, using a voice recognition dictation system. Departure Departure: Impression: Primary Impression: Fatigue during Additional Impression: Shortness of breath due to in second trimester Disposition: 01 HOME, SELF-CARE Condition: STABLE Referrals: PCP,UNKNOWN (PCP) Patient Instructions: - Second Trimester, [id number], Shortness of Breath, [id number] Problem Qualifiers Primary Impression: Fatigue during Trimester: second trimester Qualified Codes: O26.812 - related exhaustion and fatigue, second trimester JOSEPH WALLER DO Jun 06, 2019 13:03
--- NOTE | 2019-06-06 13:25 | RAD ---
CHEST PA LATERAL History: Shortness of breath Comparison: October 04, 2017 Findings: 2 views of the chest are submitted. There is some motion degradation. There is no new lobar consolidation, pleural fluid, or pneumothorax. There are again clips near the right apex. There is now a right upper extremity PICC with the tip near the cavoatrial junction. Cardiac silhouette is stable, within normal limits. Impression: 1. No acute radiographic abnormality is identified. Electronically signed by: Cody Nelson MD (06/06/2019 1:22 PM) [id number]
[2019-06-06 13:36] LABS: BASO % 0 % (0-3); EOS # 0.1 x10^3/uL (0.0-0.7); EOS % 1 % (0-3); HEMATOCRIT 32.5 % (36.0-47.0); HEMOGLOBIN 11.4 g/dL (12.0-15.5); LYMPH # 1.3 x10^3/uL (1.0-4.8); LYMPH % 13 % (24-48); MEAN CORPUSCULAR HEMOGLOBIN 33 pg (25-35); MEAN CORPUSCULAR HGB CONC 35 g/dL (31-37); MEAN CORPUSCULAR VOLUME 93 fL (79-100); MONO # 0.5 x10^3/uL (0.0-1.1); MONO % 5 % (0-9); NEUT # 7.9 x10^3uL (1.8-7.7); NEUT % 80 % (31-73); PLATELET COUNT 219 x10^3/uL (140-400); RED BLOOD COUNT 3.48 x10^6/uL (3.50-5.40); WHITE BLOOD COUNT 9.8 x10^3/uL (4.0-11.0)
[2019-06-06 13:41] LABS: BACTERIA,URINE 0 /HPF (0-FEW); BILIRUBIN,URINE NEG (NEG); CLARITY,URINE CLEAR; COLOR,URINE YELLOW; GLUCOSE,URINE NEG (NEG); NITRITE,URINE NEG (NEG); RBC,URINE 0 /HPF (0-2); SQUAMOUS EPITHELIAL CELL,UR FEW /LPF; UROBILINOGEN,URINE 0.2 mg/dL (0.2 mg/dL); WBC,URINE OCC /HPF (0-4)
[2019-06-06 13:45] LABS: CALCIUM 8.3 mg/dL (8.5-10.1); CREATININE 0.5 mg/dL (0.6-1.0); GFR 141.2; POTASSIUM 3.5 mmol/L (3.5-5.1)
[2019-06-06 13:50] LABS: ALBUMIN 2.8 g/dL (3.4-5.0); ALBUMIN/GLOBULIN RATIO 0.7 (1.0-1.7); MAGNESIUM 1.7 mg/dL (1.8-2.4); TOTAL BILIRUBIN 0.3 mg/dL (0.2-1.0); TOTAL PROTEIN 6.8 g/dL (6.4-8.2)
--- NOTE | 2019-06-06 14:09 | EKG ---
[address] [id number] Test Date: 2019-06-06 Test Time: 12:50:42 Pat Name: JN PAUL Department: Room: Gender: F [employer]: : 1985 Requested By: JOSEPH WALLER Order Number: [id number] Reading MD: Measurements Intervals [place] Rate: 90 P: 45 HI: 122 QRS: 40 QRSD: 78 T: 14 QT: 366 QTc: 452 Interpretive Statements SINUS RHYTHM NORMAL ECG RI6.01 No previous ECG available for comparison
[2019-06-06 15:08] VITALS: BP 99/73
== END 2019-06-06 15:08 | disposition home or self-care (01) ==
LOC: ER 12:28
DX: O26.812 Pregnancy related exhaustion and fatigue, second trimester (principal); R06.02 Shortness of breath; M54.6 Pain in thoracic spine; O99.282 Endocrine, nutritional and metabolic diseases complicating pregnancy, second trimester; E03.9 Hypothyroidism, unspecified; Z3A.17 17 weeks gestation of pregnancy; Z88.6 Allergy status to analgesic agent
CPT/HCPCS: 36415; 71046; 80053; 81001; 83735; 84484; 85025; 93005; 99285

== ENCOUNTER 2020-03-01 10:40 | Emergency (ER) | payer OTHER ==
[~2020-03-01] VITALS: Ht 157.5 cm; Wt 66.8 kg
[2020-03-01] MEDS ORDERED: IV NORMAL SALINE 1,000ML 1,000 ML IV SCH (11:02)
[2020-03-01] MEDS ORDERED: MORPHINE SULFATE 4 MG/ML DISP.SYRIN. ONE (11:03)
[2020-03-01] MEDS ORDERED: ONDANSETRON PF 4 MG/2 ML VIAL. ONE (11:03)
--- NOTE | 2020-03-01 11:10 | PHYS DOC ---
Past History Past Medical History: Cancer, GERD, Hypothyroid Past Surgical History: Other Additional Past Surgical Histo: THYROIDECTOMY Smoking: Non-smoker Alcohol Use: None Drug Use: None General Adult EDM: Chief Complaint: ABDOMINAL PAIN HPI: HPI: 35 yo F PMH thyroid cancer s/p thyroidectomy and gerd presents to the ed from [facility], concern for acute appendicitis. Patient reports right lower quadrant abdominal pain that has been constant and nonradiating for the past 2 days, woke up today with some nausea. Reports she is 4 months and is not breast-feeding. Her last menstrual period was February 17. Denies any alcohol or drug use. Pt reports "it feels like gas, I'm bloated." Was told by [facility] that she had an umbillical hernia. Pt also worried about cancer given thyroid cancer that had spread to her lymph nodes. ROS: No associated vaginal bleeding, abnormal vaginal discharge itching or odor, no dysuria or hematuria. Review of Systems: Review of Systems: Constitutional: Denies fever or chills Eyes: Denies change in visual acuity HENT: Denies nasal congestion or sore throat Respiratory: Denies cough or shortness of breath Cardiovascular: Denies chest pain or edema GI: Denies abdominal pain, nausea, vomiting, bloody stools or diarrhea : Denies dysuria Musculoskeletal: Denies back pain or joint pain Integument: Denies rash Neurologic: Denies headache, focal weakness or sensory changes Endocrine: Denies polyuria or polydipsia Lymphatic: Denies swollen glands Psychiatric: Denies depression or anxiety Heart Score: Risk Factors: Risk Factors: DM, Current or recent (<one month) smoker, HTN, HLP, family history of CAD, obesity. Risk Scores: Score 0 - 3: 2.5% MACE over next 6 weeks - Discharge Home Score 4 - 6: 20.3% MACE over next 6 weeks - Admit for Clinical Observation Score 7 - 10: 72.7% MACE over next 6 weeks - Early Invasive Strategies Current Medications: Current Meds: Current Medications Medications (Trade) Dose Ordered Sig/Yady Start Time Stop Time Status Last Admin Dose Admin Morphine Sulfate (Morphine 4mg Syringe) 4 mg 1X ONCE 03/01/20 11:15 03/01/20 11:16 UNV Ondansetron HCl (Zofran) 4 mg 1X ONCE 10/5/20 11:15 03/01/20 11:16 UNV Sodium Chloride 1,000 ml @ 1,000 mls/hr Q1H 03/01/20 11:02 03/01/20 12:01 UNV Allergies: Allergies: Allergies Coded Allergies Type Severity Reaction Last Updated Verified ibuprofen Allergy Unknown Rash 03/01/20 Yes metoclopramide Allergy Unknown 03/01/20 Yes prochlorperazine Allergy Unknown 03/01/20 Yes Physical Exam: PE: Constitutional: Well developed, well nourished, no acute distress, non-toxic appearance. [] HENT: Normocephalic, atraumatic, bilateral external ears normal, oropharynx moist, no oral exudates, nose normal. [] Eyes: PERRLA, EOMI, conjunctiva normal, no discharge. [] Neck: Normal range of motion, no tenderness, supple, no stridor. [] Cardiovascular:Heart rate regular rhythm, no murmur [] Lungs & Thorax: Bilateral breath sounds clear to auscultation [] Abdomen: Bowel sounds normal, soft, some RLQ-but I am able to press firmly, no umbilical hernia on exam, dark linea alba present, no masses, no pulsatile masses. [] Skin: Warm, dry, no erythema, no rash. [] Back: No tenderness, no CVA tenderness. [] Extremities: No tenderness, no cyanosis, no clubbing, ROM intact, no edema. [] Neurologic: Alert and oriented X 3, normal motor function, normal sensory function, no focal deficits noted. [] Psychologic: Affect normal, judgement normal, mood normal. [] Current Patient Data: Vital Signs: Vital Signs Date Time Temp Pulse Resp B/P (MAP) Pulse Ox O2 Delivery O2 Flow Rate FiO2 03/01/20 10:48 97.9 93 18 127/80 (96) 98 Room Air EKG: EKG: [] Radiology/Procedures: Radiology/Procedures: IMAGING REPORT Signed PATIENT: JN PAUL EACCOUNT: [id number] : 1985 LOCATION: ER AGE: 35 SEX: F EXAM STATUS: REG ER ORD. PHYSICIAN: BARRY RUBIN DO REASON: rlq pain PROCEDURE: CT ABD PELV W/ IV CONTRST ONLY Exam: CT abdomen/pelvis with intravenous contrast Indication: Right lower quadrant pain Comparison: CT abdomen pelvis 12/02/2015 Technique: Helical CT imaging performed of the abdomen and pelvis after the intravenous administration of 75 mL Omnipaque 300 intravenous contrast. Sagittal and coronal reformats were obtained. One or more of the following individualized dose reduction techniques were utilized for this examination: 1. Automated exposure control 2. Adjustment of the mA and/or kV according to patient size 3. Use of iterative reconstruction technique. Findings: Lower chest: Lung bases are clear. Heart is normal size. Liver: Liver is mildly enlarged measuring 19 cm in length. There is no focal liver lesion. Gallbladder/Biliary Tree: Normal. Pancreas: Normal. Spleen: Normal. Adrenal Glands: Normal. Kidneys/Ureters/Bladder: Kidneys, ureters, and bladder are normal. Reproductive Organs: Uterus is anteverted. There is fluid in the endometrial canal. There is a 1.7 cm dominant follicle in the left ovary. Stomach, small bowel, and colon: Stomach, small bowel, appendix, and colon are normal. Vasculature: Abdominal aorta is normal in caliber. Mild calcified aortic atherosclerosis. Lymph Nodes: No lymphadenopathy. Peritoneum and retroperitoneum: No free fluid or free air. Bones: No acute osseous abnormality. Impression: No acute intra-abdominal/pelvic abnormality. Normal appendix. Electronically signed by: Katrina Vazquez MD (03/01/2020 11:56 AM) [id number] DICTATED AND SIGNED BY: KATRINA VAZQUEZ MD DATE: 03/01/20 1156 CC: TIARA CANTRELL DO; BARRY RUBIN DO ~ Course & Med Decision Making: Course & Med Decision Making Pertinent Labs and Imaging studies reviewed. (See chart for details) Concern for right lower quadrant abdominal pain with associated nausea for the past 2 days, urinalysis with no signs of infection, moderate blood, occasionally rbcs. CT abdomen pelvis with no acute abnormality, normal appendix, left ovarian follicle and some fluid in the endometrial canal-denies any vaginal bleeding or abnormal vaginal discharge. Has no lower pelvic pain on reevaluation, RLQ pain is very well tolerable-ambulating and moving in no distress. Patient with no fever or leukocytosis. H/H wnl. HD stable. Pt reports daily BMs-pain feels as if she's bloated and gasey. Pt in no distress -unlikely torsion picture given duration and well appearance. Strict ED return precautions were given for worsening abdominal or back pain, fever or dehydration. Encouraged urgent outpatient follow-up with PMD and [facility]. Life- threatening processes were considered but are low suspicion at this time, given history and physical exam. Pt was educated on all prescription medications and adverse effects. All patient's questions were answered and pt was stable at time of discharge. Life/limb-threatening differential includes but is not limited to, aortic dissection, aortic aneurysm, acute coronary syndrome, surgical abdomen (appendicitis, cholecystitis, ischemic bowel, strangulated hernia, etc), bowel obstruction or volvulus, bladder outlet obstruction, gastrointestinal bleeding, inflammatory bowel disease, peptic ulcer disease, sepsis, diverticular disease, ureterolithiasis, nephrolithiasis, ovarian torsion, ectopic , vaginal hemorrhage, or genitourinary infection. I spoken with the patient and her caregivers. I explained the patient's conditi on, diagnoses and treatment plan based on the information available to me at this time. I have answered the patient and her caregiver's questions and addressed any concerns. The patient and her caregivers have a good understanding of patient's diagnosis, condition and treatment plan as can be expected at this point. Vital signs have been stable. Patient's condition is stable and appropriate for discharge from the emergency department. Patient will pursue further outpatient evaluation with primary care physician or other designated or consulting physician as outlined in the discharge instructions. The patient and/or caregivers are agreeable to this plan of care and follow-up instructions have been explained in detail. The patient and/or caregivers have received these instructions in written form and have expressed an understanding of the discharge instructions. The patient and/or caregivers are aware that any significant change of condition or worsening of symptoms should prompt immediate return to this or the closest emergency department or call to 911. Charlottejonathon Disclaimer: Mariaelena Disclaimer: This electronic medical record was generated, in whole or in part, using a voice recognition dictation system. Departure Departure: Impression: Primary Impression: Abdominal pain Additional Impression: Nausea Disposition: 01 HOME/RESIDENCE PRIOR TO ADM Condition: STABLE Referrals: TIARA CANTRELL DO (PCP) Patient Instructions: Abdominal Pain Additional Instructions: FOLLOW UP WITH OBGYN: [facility] [address], [address] [place] [address] EMERGENCY DEPARTMENT GENERAL DISCHARGE INSTRUCTIONS Thank you for coming to [facility] (ED) today and trusting us with you care. We trust that you had a positivie experience in our Emergency Department. If you wish to speak to the department management, you may call the director at [phone]. YOUR FOLLOW UP INSTRUCTIONS ARE FOLLOWS: 1. Do you have a private Doctor? If you do not have a private doctor, please ask for a resource list of physicians or clinics that may be able to assist you with follow up care. 2. The Emergency Physician has interpreted your x-rays. The X-Ray specialist will also review them. If there is a change in the findings, you will be notified in 48 hours when at all possible. 3. A lab test or culture has been done, your results will be reviewed and you will be notified if you need a change in treatment. ADDITIONAL INSTRUCTIONS AND INFORMATION: 1. Your care today has been supervised by a physician who is specially trained in emergency care. Many problems require more than one evaluation for a complete diagnosis and treatment. We recommend that you schedule your follow up appointment as recommended to ensure complete treatment of you illness or injury. If you are unable to obtain follow up care and continue to have a problem, or if your condition worsens, we recommend that you return to the ED. 2. We are not able to safely determine your condition over the phone nor are we able to give sound medical advice over the phone. For these safety reasons, if you call for medical advice we will ask you to come to the ED for further evaluation. 3. If you have any questions regarding these discharge instructions please call the ED at [phone]. SAFETY INFORMATION: In the interest of safety, wellness, and injury prevention; we encourage you to wear your sealbelt, if you smoke; quite smoking, and we encourage family to use a protective helmet for bicycling and other sporting events that present an increased risk for head injury. IF YOUR SYMPTOMS WORSEN OR NEW SYMPTOMS DEVELOP, OR YOU HAVE CONCERNS ABOUT YOUR CONDITION; OR IF YOUR CONDITION WORSENS WHILE YOU ARE WAITING FOR YOUR FOLLOW UP APPOINTMENT; EITHER CONTACT YOUR PRIMARY CARE DOCTOR, THE PHYSICIAN WHOSE NAME AND NUMBER YOU WERE GIVEN, OR RETURN TO THE ED IMMEDIATELY. Scripts Simethicone (GAS-X) 125 Mg Capsule 125 MG PO QID PRN for flatus for 5 Days, #20 CAP Prov: BRARY RUBIN DO 03/01/20 Ondansetron (ONDANSETRON ODT) 4 Mg Tab.rapdis 4 MG PO Q6HRS for Nausea/Vomiting, #15 TAB Prov: BARRY RUBIN DO 03/01/20 BARRY RUBIN DO Mar 01, 2020 11:10
[2020-03-01] MEDS ORDERED: ONDANSETRON PF 4 MG/2 ML VIAL. IVP ONE (11:15)
[2020-03-01] MEDS ORDERED: IOHEXOL 300 MG/ML 75 ML VIAL. IV ONE (11:15)
[2020-03-01] MEDS ORDERED: MORPHINE SULFATE 4 MG/ML DISP.SYRIN. IV ONE (11:15)
[2020-03-01] MEDS ORDERED: CONTRAST GIVEN. MC PRN (11:30)
[2020-03-01 11:47] LABS: CREATININE 0.8 mg/dL (0.6-1.0); GFR 81.6; POTASSIUM 3.7 mmol/L (3.5-5.1)
[2020-03-01 11:48] LABS: BASO % 0 % (0-3); EOS # 0.1 x10^3/uL (0.0-0.7); EOS % 2 % (0-3); HEMOGLOBIN 14.2 g/dL (12.0-15.5); LYMPH # 1.3 x10^3/uL (1.0-4.8); LYMPH % 21 % (24-48); MEAN CORPUSCULAR HEMOGLOBIN 31 pg (25-35); MEAN CORPUSCULAR HGB CONC 33 g/dL (31-37); MEAN CORPUSCULAR VOLUME 95 fL (79-100); MONO # 0.4 x10^3/uL (0.0-1.1); MONO % 7 % (0-9); NEUT # 4.6 x10^3uL (1.8-7.7); NEUT % 71 % (31-73); PLATELET COUNT 260 x10^3/uL (140-400); RED BLOOD COUNT 4.52 x10^6/uL (3.50-5.40); RED CELL DISTRIBUTION WIDTH 13.2 % (11.5-14.5); WHITE BLOOD COUNT 6.4 x10^3/uL (4.0-11.0)
[2020-03-01 11:53] LABS: ALBUMIN 3.8 g/dL (3.4-5.0); ALBUMIN/GLOBULIN RATIO 0.9 (1.0-1.7); C REACTIVE PROTEIN 3.7 mg/L (0-3.3); TOTAL BILIRUBIN 0.5 mg/dL (0.2-1.0); TOTAL PROTEIN 7.9 g/dL (6.4-8.2)
--- NOTE | 2020-03-01 11:59 | RAD ---
Exam: CT abdomen/pelvis with intravenous contrast Indication: Right lower quadrant pain Comparison: CT abdomen pelvis 12/02/2015 Technique: Helical CT imaging performed of the abdomen and pelvis after the intravenous administration of 75 mL Omnipaque 300 intravenous contrast. Sagittal and coronal reformats were obtained. One or more of the following individualized dose reduction techniques were utilized for this examination: 1. Automated exposure control 2. Adjustment of the mA and/or kV according to patient size 3. Use of iterative reconstruction technique. Findings: Lower chest: Lung bases are clear. Heart is normal size. Liver: Liver is mildly enlarged measuring 19 cm in length. There is no focal liver lesion. Gallbladder/Biliary Tree: Normal. Pancreas: Normal. Spleen: Normal. Adrenal Glands: Normal. Kidneys/Ureters/Bladder: Kidneys, ureters, and bladder are normal. Reproductive Organs: Uterus is anteverted. There is fluid in the endometrial canal. There is a 1.7 cm dominant follicle in the left ovary. Stomach, small bowel, and colon: Stomach, small bowel, appendix, and colon are normal. Vasculature: Abdominal aorta is normal in caliber. Mild calcified aortic atherosclerosis. Lymph Nodes: No lymphadenopathy. Peritoneum and retroperitoneum: No free fluid or free air. Bones: No acute osseous abnormality. Impression: No acute intra-abdominal/pelvic abnormality. Normal appendix. Electronically signed by: Katrina Vazquez MD (03/01/2020 11:56 AM) [id number]
[2020-03-01 12:09] LABS: BACTERIA,URINE 0 /HPF (0-FEW); BILIRUBIN,URINE NEG (NEG); CLARITY,URINE HAZY; COLOR,URINE YELLOW; GLUCOSE,URINE NEG (NEG); NITRITE,URINE NEG (NEG); RBC,URINE OCC /HPF (0-2); UROBILINOGEN,URINE 0.2 mg/dL (0.2 mg/dL); WBC,URINE OCC /HPF (0-4)
[2020-03-01 12:10] LABS: SQUAMOUS EPITHELIAL CELL,UR FEW /LPF
[2020-03-01 13:09] VITALS: BP 112/71
[2020-03-01] MEDS ORDERED: SIME125C PO (13:19)
[2020-03-01] MEDS ORDERED: ONDA4TAB12 PO (13:19)
== END 2020-03-01 13:32 | disposition home or self-care (01) ==
LOC: ER 10:40
DX: R10.31 Right lower quadrant pain (principal); R11.0 Nausea; K21.9 Gastro-esophageal reflux disease without esophagitis; E03.9 Hypothyroidism, unspecified; E89.0 Postprocedural hypothyroidism; Z88.6 Allergy status to analgesic agent; Z88.8 Allergy status to other drugs, medicaments and biological substances
CPT/HCPCS: 36415; 74177; 80053; 81001; 81025; 82550; 85025; 86140; 96361; 96374; 99285; J2405; J7030; Q9967

== ENCOUNTER 2021-10-17 21:26 | Emergency (ER) | payer OTHER ==
[~2021-10-17] VITALS: Ht 157.5 cm; Wt 66.8 kg
[~2021-10-17 21:26] MED LIST changes: +SIME125C PO
[2021-10-17] MEDS ORDERED: IBUPROFEN 600 MG TABLET. PO ONE (22:15)
--- NOTE | 2021-10-17 22:29 | PHYS DOC ---
Past History Past Medical History: Cancer, GERD, Hypothyroid Past Surgical History: Other Additional Past Surgical Histo: THYROIDECTOMY Smoking: Non-smoker Alcohol Use: None Drug Use: None General Adult EDM: Chief Complaint: GENERALIZED BODY ACHES HPI: HPI: Patient is a 36-year-old female presents with generalized body aches. Patient states that she been running fevers at home since yesterday. Patient been taki ng ibuprofen and Tylenol. Last dose of ibuprofen was at 5 PM tonight. Patient is afebrile on arrival. Denies nausea/vomiting/diarrhea. Denies shortness of breath, chest pain or cough. Denies exposure to recent illness. No medical history. Review of Systems: Review of Systems: ROS At least 10 ROS systems have been reviewed and are negative except as documented in the HPI. General: Negative except as outlined in HPI above. Skin: Negative except as outlined in HPI above. HEENT: Negative except as outlined in HPI above. Neck: Negative except as outlined in HPI above. Respiratory: Negative except as outlined in HPI above.. Cardiovascular: Negative except as outlined in HPI above. Abdomen: Negative except as outlined in HPI above. : Negative except as outlined in HPI above. Back/MSK: Negative except as outlined in HPI above. Neuro: Negative except as outlined in HPI above. Psych: Negative except as outlined in HPI above. Current Medications: Current Meds: Current Medications Medications (Trade) Dose Ordered Sig/Yday Start Time Stop Time Status Last Admin Dose Admin Ibuprofen (Motrin) 600 mg 1X ONCE 10/17/21 22:15 10/17/21 22:16 UNV 10/17/21 22:21 600 MG Allergies: Allergies: Allergies Coded Allergies Type Severity Reaction Last Updated Verified ibuprofen Allergy Unknown Rash 03/01/20 Yes metoclopramide Allergy Unknown 03/01/20 Yes prochlorperazine Allergy Unknown 03/01/20 Yes Physical Exam: PE: Constitutional: Well developed, well nourished, no acute distress, non-toxic appearance. [] HENT: Normocephalic, atraumatic, bilateral external ears normal, oropharynx moist, no oral exudates, nose normal. [] Eyes: PERRLA, EOMI, conjunctiva normal, no discharge. [] Neck: Normal range of motion, no tenderness, supple, no stridor. [] Cardiovascular:Heart rate regular rhythm, no murmur [] Lungs & Thorax: Bilateral breath sounds clear to auscultation, no wheezing Abdomen: Bowel sounds normal, soft, no tenderness, no masses, no pulsatile masses. [] Skin: Warm, dry, no erythema, no rash. [] Back: No tenderness, no CVA tenderness. [] Extremities: No tenderness, no cyanosis, no clubbing, ROM intact, no edema. [] Neurologic: Alert and oriented X 3, normal motor function, normal sensory function, no focal deficits noted. [] Psychologic: Affect normal, judgement normal, mood normal. [] Current Patient Data: Vital Signs: Vital Signs Date Time Temp Pulse Resp B/P (MAP) Pulse Ox O2 Delivery O2 Flow Rate FiO2 10/17/21 21:35 97.8 82 18 113/76 (88) 98 Room Air EKG: EKG: [] Radiology/Procedures: Radiology/Procedures: [] Heart Score: C/O Chest Pain: No Risk Factors: Risk Factors: DM, Current or recent (<one month) smoker, HTN, HLP, family history of CAD, obesity. Risk Scores: Score 0 - 3: 2.5% MACE over next 6 weeks - Discharge Home Score 4 - 6: 20.3% MACE over next 6 weeks - Admit for Clinical Observation Score 7 - 10: 72.7% MACE over next 6 weeks - Early Invasive Strategies Course & Med Decision Making: Course & Med Decision Making Pertinent Labs and Imaging studies reviewed. (See chart for details) [] 36-year-old female presents with generalized body aches. Afebrile. Patient given ibuprofen while in the emergency room. Patient tested for COVID and influenza. Advised patient to continue taking ibuprofen and Tylenol for fever and body aches. Discussed follow-up with PCP if symptoms not improving. Discussed return precautions. Patient's appreciative and okay with discharge plan. Dragon Disclaimer: Dragjonathon Disclaimer: This electronic medical record was generated, in whole or in part, using a voice recognition dictation system. Departure Departure: Impression: Primary Impression: Viral syndrome Disposition: HOME / SELF CARE / HOMELESS Condition: STABLE Referrals: TIARA CANTRELL DO (PCP) Patient Instructions: Fever, Adult, Sidx-cm-Dimm Additional Instructions: You were seen in the emergency room for fever and generalized body aches. You were tested for COVID and influenza. Take ibuprofen and Tylenol for fever and body aches. Follow-up with your PCP if symptoms or not improving in the next couple of days. Return to the emergency room if you have worsening symptoms or concerns such as shortness of breath, chest pain, unable to keep down fluids. EMERGENCY DEPARTMENT GENERAL DISCHARGE INSTRUCTIONS Thank you for coming to [facility] (ED) today and trusting us with you care. We trust that you had a positivie experience in our Emergency Department. If you wish to speak to the department management, you may call the director at [phone]. YOUR FOLLOW UP INSTRUCTIONS ARE FOLLOWS: 1. Do you have a private Doctor? If you do not have a private doctor, please ask for a resource list of physicians or clinics that may be able to assist you with follow up care. 2. The Emergency Physician has interpreted your x-rays. The X-Ray specialist will also review them. If there is a change in the findings, you will be notified in 48 hours when at all possible. 3. A lab test or culture has been done, your results will be reviewed and you will be notified if you need a change in treatment. ADDITIONAL INSTRUCTIONS AND INFORMATION: 1. Your care today has been supervised by a physician who is specially trained in emergency care. Many problems require more than one evaluation for a complete diagnosis and treatment. We recommend that you schedule your follow up appointment as recommended to ensure complete treatment of you illness or injury. If you are unable to obtain follow up care and continue to have a problem, or if your condition worsens, we recommend that you return to the ED. 2. We are not able to safely determine your condition over the phone nor are we able to give sound medical advice over the phone. For these safety reasons, if you call for medical advice we will ask you to come to the ED for further evaluation. 3. If you have any questions regarding these discharge instructions please call the ED at [phone]. SAFETY INFORMATION: In the interest of safety, wellness, and injury prevention; we encourage you to wear your sealbelt, if you smoke; quite smoking, and we encourage family to use a protective helmet for bicycling and other sporting events that present an increased risk for head injury. IF YOUR SYMPTOMS WORSEN OR NEW SYMPTOMS DEVELOP, OR YOU HAVE CONCERNS ABOUT YOUR CONDITION; OR IF YOUR CONDITION WORSENS WHILE YOU ARE WAITING FOR YOUR FOLLOW UP APPOINTMENT; EITHER CONTACT YOUR PRIMARY CARE DOCTOR, THE PHYSICIAN WHOSE NAME AND NUMBER YOU WERE GIVEN, OR RETURN TO THE ED IMMEDIATELY. RASHEED RODRIGUEZ APRN October 17, 2021 22:29
[2021-10-17 23:02] LABS: BACTERIA,URINE 0 /HPF (0-FEW); CLARITY,URINE CLEAR; COLOR,URINE YELLOW; GLUCOSE,URINE NEG (NEG); NITRITE,URINE NEG (NEG)
[2021-10-17 23:03] LABS: SQUAMOUS EPITHELIAL CELL,UR FEW /LPF
[2021-10-17 23:05] LABS: INFLUENZA A PATIENT NEGATIVE (NEGATIVE); INFLUENZA B PATIENT NEGATIVE (NEGATIVE)
[2021-10-17 23:15] VITALS: BP 116/74
== END 2021-10-17 23:15 | disposition home or self-care (01) ==
LOC: ER 21:26
DX: B34.9 Viral infection, unspecified (principal); K21.9 Gastro-esophageal reflux disease without esophagitis; E03.9 Hypothyroidism, unspecified; Z20.822 Contact with and (suspected) exposure to COVID-19; Z88.6 Allergy status to analgesic agent; Z88.8 Allergy status to other drugs, medicaments and biological substances
CPT/HCPCS: 81001; 81025; 87428; 99283